=== PATIENT | female | born 1980 | race Caucasian/White ===

== ENCOUNTER 2019-04-19 18:03 | Observation (INO) | payer MEDICAID ==
[2019-04-19] MEDS ORDERED: Ondansetron 4 MG/2 ML SDV IVPUSH ONE ×2 (18:51→19:38)
[2019-04-19] MEDS ORDERED: LORazepam 2 MG/ML SDV IVPUSH ONE ×3 (18:52→22:08)
[2019-04-19] MEDS ORDERED: Sodium Chloride 0.9% 1,000 ML IV SCH ×3 (19:00→21:30)
--- NOTE | 2019-04-19 19:04 | EDM.PDOC ---
ED HPI GENERAL MEDICAL PROBLEM - General Chief Complaint: Gastrointestinal Problem Stated Complaint: VOMITING FOR 12 HOURS Time Seen by Provider: 04/19/19 19:03 Source of Information: Reports: Patient History Limitations: Reports: No Limitations - History of Present Illness INITIAL COMMENTS - FREE TEXT/NARRATIVE: pt arrived with a history of vomiting all day. She has not had bp meds for several days. She is here for her mothers wedding. Pt is wretching and vomiting actively. 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 ) Headache Pain Score (Numeric/FACES): 3 - Related Data Allergies Allergy/AdvReac Type Severity Reaction Status Date / Time amoxicillin Allergy Swelling Verified 04/19/19 18:35 Home Meds: Home Meds Loratadine [Claritin] 10 mg PO DAILY 04/19/19 [History] Diltiazem [Dilacor XR] 240 mg PO DAILY #7 cap.er 04/20/19 [Rx] amLODIPine [Norvasc] 5 mg PO BID #14 tablet 04/20/19 [Rx] hydrALAZINE [Apresoline] 50 mg PO Q12HR #14 tablet 04/20/19 [Rx] Past Medical History HEENT History: Reports: Impaired Vision Cardiovascular History: Reports: Hypertension Genitourinary History: Reports: Other (See Below) Other Genitourinary History: IGA nephropathy since child 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: Neurological History: Reports: Migraines Psychiatric History: Reports: Anxiety, Panic Attack Dermatologic History: Reports: Eczema - Infectious Disease History Infectious Disease History: Reports: Chicken Pox - Past Surgical History HEENT Surgical History: Reports: Myringotomy w Tube(s) GI Surgical History: Reports: Cholecystectomy Female Surgical History: Reports: Section Social & Family History - Tobacco Use Smoking Status *Q: Current Every Day Smoker Years of Tobacco use: 25 Packs/Tins Daily: 1 Used Tobacco, but Quit: No Second Hand Smoke Exposure: Yes - Caffeine Use Caffeine Use: Reports: None - Alcohol Use Days Per Week of Alcohol Use: 0 - Recreational Drug Use Recreational Drug Use: Yes Drug Use in Last 12 Months: Yes Recreational Drug Type: Reports: Marijuana/Hashish Recreational Drug Use Frequency: Daily ED ROS GENERAL - Review of Systems Review Of Systems: See Below Constitutional: Reports: Malaise, Weakness, Decreased Appetite HEENT: Reports: No Symptoms Respiratory: Reports: No Symptoms Cardiovascular: Reports: No Symptoms Endocrine: Reports: No Symptoms GI/Abdominal: Reports: Decreased Appetite, Nausea, Vomiting : Reports: No Symptoms Musculoskeletal: Reports: No Symptoms Skin: Reports: No Symptoms Neurological: Reports: Dizziness, Tremors, Weakness Psychiatric: Reports: Anxiety ED EXAM, GI/ABD - Physical Exam Exam: See Below Text/Narrative:: pt arrived feeling quite agitated. She has been vomiting constantly for the past 12 hours. She is not having abdomanal pain but is very nauseated. She has a low grade temp. Exam Limited By: No Limitations General Appearance: Alert, Anxious, Moderate Distress Ears: Normal TMs Nose: Normal Inspection Throat/Mouth: Normal Inspection Head: Atraumatic Neck: Normal Inspection Respiratory/Chest: No Respiratory Distress Cardiovascular: Regular Rate, Rhythm, Tachycardia, Other (pt is very hypertensive. ) GI/Abdominal Exam: Non-Tender, No Distention (Female) Exam: Deferred Rectal (Female) Exam: Deferred Back Exam: Normal Inspection Extremities: Normal Inspection Neurological: Alert, Oriented, Normal Cognition Psychiatric: Anxious Course - Vital Signs Last Recorded V/S: Last Vital Signs Temp 37.1 C 04/20/19 07:00 Pulse 86 04/20/19 08:49 Resp 18 04/20/19 07:00 BP 149/93 H 04/20/19 08:49 Pulse Ox 98 04/20/19 07:39 - Orders/Labs/Meds Labs: Laboratory Tests 04/19/19 04/19/19 04/19/19 Range/Units 19:04 19:04 19:37 WBC 17.3 H (4.5-11.0) K/uL RBC 4.77 (3.30-5.50) M/uL Hgb 13.1 (12.0-15.0) g/dL Hct 39.0 (36.0-48.0) % MCV 82 (80-98) fL MCH 28 (27-31) pg MCHC 34 (32-36) % Plt Count 295 (150-400) K/uL Neut % (Auto) 91 H (36-66) % Lymph % (Auto) 6 L (24-44) % Lamar % (Auto) 3 (2-6) % Eos % (Auto) 0 L (2-4) % Baso % (Auto) 0 (0-1) % VBG pH 7.351 (7.350-7.450) Sodium 142 (140-148) mmol/L Potassium 4.1 (3.6-5.2) mmol/L Chloride 107 (100-108) mmol/L Carbon Dioxide 15 L (21-32) mmol/L Anion Gap 24.1 H (5.0-14.0) mmol/L BUN 45 H (7-18) mg/dL Creatinine 3.8 H* (0.6-1.0) mg/dL Est Cr Clr Drug Dosing 18.06 mL/min Estimated GFR (MDRD) 13 L (>60) Glucose 154 H (74-106) mg/dL Lactic Acid (0.4-2.0) mmol/L Calcium 9.6 (8.5-10.1) mg/dL Total Bilirubin 0.6 (0.2-1.0) mg/dL AST 11 L (15-37) U/L ALT 11 L (12-78) U/L Alkaline Phosphatase 88 (46-116) U/L Total Protein 7.7 (6.4-8.2) g/dL Albumin 4.1 (3.4-5.0) g/dL Globulin 3.6 H (2.3-3.5) g/dL Albumin/Globulin Ratio 1.1 L (1.2-2.2) 04/19/19 Range/Units 21:27 WBC (4.5-11.0) K/uL RBC (3.30-5.50) M/uL Hgb (12.0-15.0) g/dL Hct (36.0-48.0) % MCV (80-98) fL MCH (27-31) pg MCHC (32-36) % Plt Count (150-400) K/uL Neut % (Auto) (36-66) % Lymph % (Auto) (24-44) % Lamar % (Auto) (2-6) % Eos % (Auto) (2-4) % Baso % (Auto) (0-1) % VBG pH (7.350-7.450) Sodium (140-148) mmol/L Potassium (3.6-5.2) mmol/L Chloride (100-108) mmol/L Carbon Dioxide (21-32) mmol/L Anion Gap (5.0-14.0) mmol/L BUN (7-18) mg/dL Creatinine (0.6-1.0) mg/dL Est Cr Clr Drug Dosing mL/min Estimated GFR (MDRD) (>60) Glucose (74-106) mg/dL Lactic Acid 2.1 H (0.4-2.0) mmol/L Calcium (8.5-10.1) mg/dL Total Bilirubin (0.2-1.0) mg/dL AST (15-37) U/L ALT (12-78) U/L Alkaline Phosphatase (46-116) U/L Total Protein (6.4-8.2) g/dL Albumin (3.4-5.0) g/dL Globulin (2.3-3.5) g/dL Albumin/Globulin Ratio (1.2-2.2) Meds: Medications Discontinued Medications Generic Name Dose Route Start Last Admin Trade Name Freq PRN Reason Stop Dose Admin Acetaminophen 650 mg 04/19/19 23:54 Tylenol PO Q4H PRN Pain (Mild 1-3)/fever Albuterol 2.5 mg 04/19/19 23:54 Proventil Neb Soln NEB Q4H PRN Shortness Of Breath/wheezing Calcium Carbonate/Glycine 1,000 mg 04/19/19 21:23 04/19/19 21:36 Tums PO 04/19/19 21:24 1,000 mg ONETIME ONE Administration Diltiazem HCl 240 mg 04/19/19 19:40 04/19/19 20:14 Cardizem Cd PO 04/19/19 19:41 240 mg ONETIME ONE Administration Diltiazem HCl 240 mg 04/20/19 09:00 04/20/19 08:49 Cardizem Cd PO 240 mg DAILY IAN Administration Enoxaparin Sodium 30 mg 04/21/19 00:00 Lovenox SUBCUT Q24H IAN Enoxaparin Sodium 30 mg 04/20/19 09:00 Lovenox SUBCUT Q24H IAN Famotidine 20 mg 04/19/19 21:24 04/19/19 21:35 Pepcid PO 04/19/19 21:25 20 mg ONETIME ONE Administration Hydralazine HCl 20 mg 04/19/19 19:38 04/19/19 20:14 Apresoline PO 04/19/19 19:39 20 mg Q8H ONE Administration Hydralazine HCl 5 mg 04/19/19 22:34 04/19/19 23:26 Apresoline IVPUSH 04/19/19 22:35 5 mg ONETIME ONE Administration Hydralazine HCl 5 mg 04/19/19 23:54 Apresoline IVPUSH ONETIME PRN Hypertension Hydralazine HCl 50 mg 04/20/19 09:00 04/20/19 08:48 Apresoline PO 50 mg Q12H IAN Administration Sodium Chloride 1,000 mls @ 999 mls/hr 04/19/19 19:00 04/19/19 19:02 Normal Saline IV 999 mls/hr ASDIRECTED IAN Administration Sodium Chloride 1,000 mls @ 999 mls/hr 04/19/19 19:45 04/19/19 20:11 Normal Saline IV 999 mls/hr ASDIRECTED IAN Administration Sodium Chloride 1,000 mls @ 400 mls/hr 04/19/19 21:30 04/19/19 21:37 Normal Saline IV 400 mls/hr ASDIRECTED IAN Administration Sodium Chloride 1,000 mls @ 125 mls/hr 04/19/19 23:54 04/20/19 07:33 Normal Saline IV 125 mls/hr ASDIRECTED IAN Administration Lorazepam 0.5 mg 04/19/19 18:52 04/19/19 19:06 Ativan IVPUSH 04/19/19 18:53 0.5 mg ONETIME ONE Administration Lorazepam 0.5 mg 04/19/19 20:12 04/19/19 20:22 Ativan IVPUSH 04/19/19 20:13 0.5 mg ONETIME ONE Administration Lorazepam 1 mg 04/19/19 22:08 04/19/19 22:17 Ativan IVPUSH 04/19/19 22:09 1 mg ONETIME ONE Administration Lorazepam 1 mg 04/19/19 23:54 Ativan IV 04/20/19 00:05 Q6H PRN Nausea/Vomiting Lorazepam 1 mg 04/20/19 00:05 04/20/19 00:18 Ativan IV 1 mg Q2H PRN Administration Anxiety Morphine Sulfate 2 mg 04/19/19 23:54 Morphine IVPUSH Q2H PRN Pain (severe 7-10) Ondansetron HCl 4 mg 04/19/19 18:51 04/19/19 19:02 Zofran IVPUSH 04/19/19 18:52 4 mg ONETIME ONE Administration Ondansetron HCl 4 mg 04/19/19 19:38 04/19/19 20:11 Zofran IVPUSH 04/19/19 19:39 4 mg ONETIME ONE Administration Oxycodone HCl 5 mg 04/19/19 23:54 Oxycodone PO Q4H PRN Pain (moderate 4-6) - Re-Assessments/Exams Free Text/Narrative Re-Assessment/Exam: 04/19/19 21:38 pt has a ph of 7.35. She is looking quite dry. Her bp is elevated and her hydralazine and her diltazam was given to the pt. She has been given 2 liters of fluid and she is now on her 3rd liter and that is running at 400cc. she has heart burn she was given a tuim and pepcid. Pt will be admitted for further follow up. Her creatnine is normally between 3-4. 04/24/19 07:51 pt remaind hypertensive. She was given further ativan. She now states that she was drinking all nite. Departure - Departure Time of Disposition: 21:41 Disposition: Admitted As Inpatient 66 Condition: Fair Clinical Impression: Nephropathy, Dehydration Hypertension Qualifiers: Hypertension type: secondary to other renal disorders Qualified Code(s): I15.1 - Hypertension secondary to other renal disorders - Discharge Information
[2019-04-19] MEDS ORDERED: hydrALAZINE 10 MG Tab PO ONE (19:38)
[2019-04-19] MEDS ORDERED: Diltiazem 120 MG Cap.CD PO ONE (19:40)
[2019-04-19] MEDS ORDERED: Calcium Carbonate 500 MG Tab.Chew PO ONE (21:23)
[2019-04-19] MEDS ORDERED: Famotidine 20 MG Tab PO ONE (21:24)
[2019-04-19] MEDS ORDERED: hydrALAZINE 20 MG/ML SDV IVPUSH ONE (22:34)
--- NOTE | 2019-04-19 23:18 | PCM.HP ---
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 She is here for the wedding of her Mom. has not taken her blood pressure medication for 3 days. has been exposed to alcohol and THC - drank > 1 bottle of wine yesterday THC for 20 minutes. Woke up this morning sick , thought she was just hung over but has been vomiting for 12 hours, now with dry heaves and restless legs. She denies any cardiac pain, shortness of breath, headache, numbness or tingling. Onset of Symptoms: Reports: Today Duration of Symptoms: Reports: Day(s):, Getting Worse Location: Reports: Abdomen (nausea and vomiting >12 hours), Generalized Severity: Severe Improves with: Reports: Rest Worsens with: Reports: Eating Context: Reports: Other (nausea and vomiting) Associated Symptoms: Reports: Loss of Appetite, Malaise, Nausea/Vomiting, Weakness Headache Pain Score (Numeric/FACES): 3 - Related Data Allergies/Adverse Reactions: Allergies Allergy/AdvReac Type Severity Reaction Status Date / Time amoxicillin Allergy Swelling Verified 04/19/19 18:35 Home Medications: Home Meds Diltiazem [Diltiazem XR] 240 mg PO DAILY 04/19/19 [History] Loratadine [Claritin] 10 mg PO DAILY 04/19/19 [History] hydrALAZINE [Apresoline] 50 mg PO Q12HR 04/19/19 [History] Past Medical History HEENT History: Reports: Impaired Vision Cardiovascular History: Reports: Hypertension Genitourinary History: Reports: Other (See Below) Other Genitourinary History: IGA nephropathy since child 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: Neurological History: Reports: Migraines Psychiatric History: Reports: Anxiety, Panic Attack Dermatologic History: Reports: Eczema - Infectious Disease History Infectious Disease History: Reports: Chicken Pox - Past Surgical History HEENT Surgical History: Reports: Myringotomy w Tube(s) GI Surgical History: Reports: Cholecystectomy Female Surgical History: Reports: Section Social & Family History - Tobacco Use Smoking Status *Q: Current Every Day Smoker Years of Tobacco use: 25 Packs/Tins Daily: 1 Used Tobacco, but Quit: No Second Hand Smoke Exposure: Yes - Caffeine Use Caffeine Use: Reports: None - Alcohol Use Days Per Week of Alcohol Use: 0 - Recreational Drug Use Recreational Drug Use: Yes Drug Use in Last 12 Months: Yes Recreational Drug Type: Reports: Marijuana/Hashish Recreational Drug Use Frequency: Daily H&P Review of Systems - Review of Systems: Review Of Systems: See Below General: Reports: Malaise, Weakness, Decreased Appetite HEENT: Reports: No Symptoms Pulmonary: Reports: No Symptoms Cardiovascular: Reports: No Symptoms Gastrointestinal: Reports: Nausea, Vomiting Genitourinary: Reports: No Symptoms, Other (last void at 5 pm today) Musculoskeletal: Reports: Muscle Pain (muscles feel weak and restless) Skin: Reports: No Symptoms Psychiatric: Reports: No Symptoms Neurological: Reports: No Symptoms Hematologic/Lymphatic: Reports: Anemia (history of anemai) Immunologic: Reports: No Symptoms Exam - Exam Exam: See Below - Vital Signs Vital Signs: Last Vital Signs Temp 38.1 C 04/19/19 21:07 Pulse 84 04/19/19 21:07 Resp 14 04/19/19 21:07 BP 204/119 H 04/19/19 21:07 Pulse Ox 96 04/19/19 21:07 Weight: 77.4 kg - Exam Quality Assessment: DVT Prophylaxis General: Alert, Oriented, Cooperative, Moderate Distress (restless legs, dry heaves) HEENT: PERRLA, Conjunctiva Clear, EACs Clear, EOMI, Hearing Intact, Nares Patent , Normal Nasal Septum, Posterior Pharynx Clear, Pupils Equal, Pupils Reactive, TMs Clear, Glasses Neck: Supple, Trachea Midline Lungs: Clear to Auscultation, Normal Respiratory Effort Cardiovascular: Regular Rate, Regular Rhythm, Normal S1, Normal S2 GI/Abdominal Exam: Normal Bowel Sounds, Soft, Non-Tender, No Organomegaly, No Distention, No Mass (Female) Exam: Deferred Rectal (Female) Exam: Deferred Back Exam: Normal Inspection, Full Range of Motion Extremities: Normal Inspection, Normal Range of Motion, Non-Tender, No Pedal Edema, Normal Capillary Refill Skin: Warm, Dry, Intact Neurological: Reflexes Equal Bilateral, Strength Equal Bilateral Neuro Extensive - Mental Status: Alert, Oriented x3, Normal Mood/Affect, Normal Cognition, Memory Intact Psychiatric: Alert, Normal Affect, Normal Mood - Patient Data Lab Results Last 24 hrs: Laboratory Results - last 24 hr 04/19/19 04/19/19 04/19/19 Range/Units 19:04 19:04 19:37 WBC 17.3 H (4.5-11.0) K/uL RBC 4.77 (3.30-5.50) M/uL Hgb 13.1 (12.0-15.0) g/dL Hct 39.0 (36.0-48.0) % MCV 82 (80-98) fL MCH 28 (27-31) pg MCHC 34 (32-36) % Plt Count 295 (150-400) K/uL Neut % (Auto) 91 H (36-66) % Lymph % (Auto) 6 L (24-44) % Eaton % (Auto) 3 (2-6) % Eos % (Auto) 0 L (2-4) % Baso % (Auto) 0 (0-1) % VBG pH 7.351 (7.350-7.450) Sodium 142 (140-148) mmol/L Potassium 4.1 (3.6-5.2) mmol/L Chloride 107 (100-108) mmol/L Carbon Dioxide 15 L (21-32) mmol/L Anion Gap 24.1 H (5.0-14.0) mmol/L BUN 45 H (7-18) mg/dL Creatinine 3.8 H* (0.6-1.0) mg/dL Est Cr Clr Drug Dosing 18.06 mL/min Estimated GFR (MDRD) 13 L (>60) Glucose 154 H (74-106) mg/dL Lactic Acid (0.4-2.0) mmol/L Calcium 9.6 (8.5-10.1) mg/dL Total Bilirubin 0.6 (0.2-1.0) mg/dL AST 11 L (15-37) U/L ALT 11 L (12-78) U/L Alkaline Phosphatase 88 (46-116) U/L Total Protein 7.7 (6.4-8.2) g/dL Albumin 4.1 (3.4-5.0) g/dL Globulin 3.6 H (2.3-3.5) g/dL Albumin/Globulin Ratio 1.1 L (1.2-2.2) 04/19/19 Range/Units 21:27 WBC (4.5-11.0) K/uL RBC (3.30-5.50) M/uL Hgb (12.0-15.0) g/dL Hct (36.0-48.0) % MCV (80-98) fL MCH (27-31) pg MCHC (32-36) % Plt Count (150-400) K/uL Neut % (Auto) (36-66) % Lymph % (Auto) (24-44) % Eaton % (Auto) (2-6) % Eos % (Auto) (2-4) % Baso % (Auto) (0-1) % VBG pH (7.350-7.450) Sodium (140-148) mmol/L Potassium (3.6-5.2) mmol/L Chloride (100-108) mmol/L Carbon Dioxide (21-32) mmol/L Anion Gap (5.0-14.0) mmol/L BUN (7-18) mg/dL Creatinine (0.6-1.0) mg/dL Est Cr Clr Drug Dosing mL/min Estimated GFR (MDRD) (>60) Glucose (74-106) mg/dL Lactic Acid 2.1 H (0.4-2.0) mmol/L Calcium (8.5-10.1) mg/dL Total Bilirubin (0.2-1.0) mg/dL AST (15-37) U/L ALT (12-78) U/L Alkaline Phosphatase (46-116) U/L Total Protein (6.4-8.2) g/dL Albumin (3.4-5.0) g/dL Globulin (2.3-3.5) g/dL Albumin/Globulin Ratio (1.2-2.2) Result Diagrams: 04/19/19 19:04 04/19/19 19:04 - Problem List (1) Nausea with vomiting SNOMED Code(s): 69065705 ICD Code: R11.2 - NAUSEA WITH VOMITING, UNSPECIFIED Status: Acute Priority: High Current Visit: Yes Qualifiers: Vomiting Intractability: intractable (2) Hypertension SNOMED Code(s): 43473261 ICD Code: I10 - ESSENTIAL (PRIMARY) HYPERTENSION Status: Acute Priority: High Current Visit: Yes Qualifiers: Hypertension type: secondary to other renal disorders Qualified Code(s): I15.1 - Hypertension secondary to other renal disorders; N28.89 - Other specified disorders of kidney and ureter Problem List Initiated/Reviewed/Updated: Yes Orders Last 24hrs: Active Orders 24 hr Category Date Time Status Patient Status Manage Transfer [TRANSFER] Routine ADT 04/19/19 22:46 Ordered CULTURE BLOOD [BC] Urgent Lab 04/19/19 19:30 Received CULTURE BLOOD [BC] Urgent Lab 04/19/19 19:47 Received UA W/MICROSCOPIC [URIN] Urgent Lab 04/19/19 18:52 Ordered Sodium Chloride 0.9% [Normal Saline] 1,000 ml Med 04/19/19 19:00 Active IV ASDIRECTED Sodium Chloride 0.9% [Normal Saline] 1,000 ml Med 04/19/19 19:45 Active IV ASDIRECTED Sodium Chloride 0.9% [Normal Saline] 1,000 ml Med 04/19/19 21:30 Active IV ASDIRECTED Blood Culture x2 Reflex Set [OM.PC] Urgent Oth 04/19/19 21:27 Ordered Resuscitation Status Routine Resus Stat 04/19/19 22:51 Ordered Medication Orders Sodium Chloride (Normal Saline) 1,000 mls @ 999 mls/hr IV ASDIRECTED [facility] Last Admin: 04/19/19 19:02 Dose: 999 mls/hr Sodium Chloride (Normal Saline) 1,000 mls @ 999 mls/hr IV ASDIRECTED [facility] Last Admin: 04/19/19 20:11 Dose: 999 mls/hr Sodium Chloride (Normal Saline) 1,000 mls @ 400 mls/hr IV ASDIRECTED [facility] Last Admin: 04/19/19 21:37 Dose: 400 mls/hr Assessment/Plan Comment:: Assessment/Plan Comment:: Nausea and vomiting with accelerated High blood pressure ASSESSMENT AND PLAN- This is a 38 year old female with 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 She is prescribed Diltiazem 240 mg ER cap one po daily, Hydralazine 50 mg tab po bid. [place] Mom's [place] this week. She has not taken her medications for 3 days, has been drinking and smoking THC for two days. Yesterday the family had a "wine " libertarian to celebrated the upcoming wedding. Madelaine drank over one bottle of wine and smoking THC for twenty minutes. Woke up this morning sick, vomiting. tried to eat, thought she was just hung over but has been vomiting for 12 hours then came to ER for evaluation. Mom is her at bedside and give report. Madelaine denies chest pain, shortness of breath, headache, or dizziness. ER vital signs TPR 97-84-15 Blood pressure 215/132. Labs cr. 3.8, which is about her base line. She was given 3 liters of fluids, without voiding. IV Ativan 0.5mg x2, IV famotidine, tums, cardizem 240mg po. Blood pressure at 190/ 100. Consulted with Internal Medicine, will admit to [facility]-surg. continue IV fluids, given IV Hydrazaline 5mg in ER and then recheck blood pressure, repeat dose if blood pressure remain elevated systolic >180, diasystolic >90, recheck labs in am. continue home medication. 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 At the time of this admission I do not reasonably expected evaluation and management of this problem will require more than a 2 night hospital stay. DISPOSITION-anticipate discharge to home after the hospital stay. PRIMARY CARE PROVIDER- [facility] HOSPITALIST - Dr. Brayan Childress
[2019-04-19] MEDS ORDERED: Albuterol 0.083% 2.5 MG/3 ML Neb Soln NEB PRN (23:54)
[2019-04-19] MEDS ORDERED: LORazepam 2 MG/ML SDV IV PRN (23:54)
[2019-04-19] MEDS ORDERED: Acetaminophen 325 MG Tab PO PRN (23:54)
[2019-04-19] MEDS ORDERED: oxyCODONE 5 MG Tab PO PRN (23:54)
[2019-04-19] MEDS ORDERED: hydrALAZINE 20 MG/ML SDV IVPUSH PRN (23:54)
[2019-04-19] MEDS ORDERED: Morphine 2 MG/ML Syringe IVPUSH PRN (23:54)
[2019-04-20] MEDS ORDERED: LORazepam 2 MG/ML SDV IV PRN (00:05)
[2019-04-20] MEDS: Sodium Chloride 0.9% 1,000 ML IV SCH ×2 (07:33)
[2019-04-20] MEDS ORDERED: hydrALAZINE 25 MG Tab PO SCH (09:00)
[2019-04-20] MEDS ORDERED: Diltiazem 120 MG Cap.CD PO SCH (09:00)
[2019-04-20] MEDS ORDERED: Enoxaparin 30 MG/0.3 ML Syringe SUBCUT SCH (09:00)
--- NOTE | 2019-04-20 09:50 | PCM.DCSUM1 ---
Discharge Summary - Hospital Course Brief History: 38-year-old female with history of IgA nephropathy and secondary hypertension who presented with nausea, vomiting and dehydration. She was admitted for management of the above symptoms as well as accelerated hypertension after missing her medications for several days. Diagnosis: Stroke: No - Discharge Data Discharge Date: 04/20/19 Discharge Disposition: Home, Self-Care 01 Condition: Good - Patient Summary/Data Hospital Course: Madelaine presented to the emergency room with nausea, vomiting and dehydration. She had been off of her medications and had been imbibing in alcohol while on vacation. Workup in the emergency room revealed accelerated hypertension with systolic blood pressures greater than 200. Her creatinine was 3.8 with a baseline in the 2 range. She had an anion gap metabolic acidosis presumably from alcohol and dehydration. Lactic acid was mildly elevated because of dehydration. White count was elevated but there were no fevers to suggest infection. She received multiple liters of IV fluid in the emergency room and gentle fluids overnight following admission. She received doses of her blood pressure medications in the emergency room and overnight had a slow trend towards normalization of her blood pressures. By the morning after admission her dry heaves and vomiting have resolved. She has no abdominal pain. Creatinine level has improved down to 3.4 which is above her baseline but better than admission. The patient feels well and is requesting to go home at this time. She has been ambulating some and feels like her strength is acceptable. I did give her a one-week supply of her antihypertensive medications because she did not bring them along on her vacation. - Patient Instructions Diet: Regular Diet as Tolerated (soft, bland and boring for a few days) Activity: As Tolerated Showering/Bathing: May Shower Notify Provider of: Fever, Increased Pain, Nausea and/or Vomiting Other/Special Instructions: 1. You were in the hospital for management of nausea with vomiting, dehydration and accelerated hypertension. You received IV fluids overnight and your symptoms have improved. Your blood pressure is much better this morning. I would recommend a soft, bland and boring diet for the next several days as your stomach recovers from the episode of vomiting. Please be sure to drink plenty of water throughout the day to avoid dehydration. 2. Continue your usual home medications as previously prescribed. 3. Follow up with your primary care provider in one week. 4. Seek medical attention if you have fever greater than 101, persistent vomiting or severe abdominal pain. - Discharge Plan *PRESCRIPTION DRUG MONITORING PROGRAM REVIEWED*: Not Applicable *COPY OF PRESCRIPTION DRUG MONITORING REPORT IN PATIENT ELISA: Not Applicable Prescriptions/Med Rec: amLODIPine [Norvasc] 5 mg PO BID #14 tablet Diltiazem [Dilacor XR] 240 mg PO DAILY #7 cap.er hydrALAZINE [Apresoline] 50 mg PO Q12HR #14 tablet Home Medications: Home Meds Loratadine [Claritin] 10 mg PO DAILY 04/19/19 [History] Diltiazem [Dilacor XR] 240 mg PO DAILY #7 cap.er 04/20/19 [Rx] amLODIPine [Norvasc] 5 mg PO BID #14 tablet 04/20/19 [Rx] hydrALAZINE [Apresoline] 50 mg PO Q12HR #14 tablet 04/20/19 [Rx] Oxygen Therapy Mode: Room Air Patient Handouts: Nausea and Vomiting, Adult, [id number] Referrals: PCP,None [Primary Care Provider] - (f/u with your primary care in 1 week for a blood pressure check and lab work to check your kidney function ) - Discharge Summary/Plan Comment DC Time >30 min.: No - Patient Data Vitals - Most Recent: Last Vital Signs Temp 37.1 C 04/20/19 07:00 Pulse 86 04/20/19 08:49 Resp 18 04/20/19 07:00 BP 149/93 H 04/20/19 08:49 Pulse Ox 98 04/20/19 07:39 Weight - Most Recent: 80.739 kg I&O - Last 24 hours: Intake & Output 04/19/19 04/20/19 04/20/19 22:59 06:59 14:59 Output Total 400 500 Balance -400 -500 Lab Results - Last 24 hrs: Laboratory Results - last 24 hr 04/19/19 04/19/19 04/19/19 Range/Units 19:04 19:04 19:37 WBC 17.3 H (4.5-11.0) K/uL RBC 4.77 (3.30-5.50) M/uL Hgb 13.1 (12.0-15.0) g/dL Hct 39.0 (36.0-48.0) % MCV 82 (80-98) fL MCH 28 (27-31) pg MCHC 34 (32-36) % Plt Count 295 (150-400) K/uL Neut % (Auto) 91 H (36-66) % Lymph % (Auto) 6 L (24-44) % [place] % (Auto) 3 (2-6) % Eos % (Auto) 0 L (2-4) % Baso % (Auto) 0 (0-1) % VBG pH 7.351 (7.350-7.450) Sodium 142 (140-148) mmol/L Potassium 4.1 (3.6-5.2) mmol/L Chloride 107 (100-108) mmol/L Carbon Dioxide 15 L (21-32) mmol/L Anion Gap 24.1 H (5.0-14.0) mmol/L BUN 45 H (7-18) mg/dL Creatinine 3.8 H* (0.6-1.0) mg/dL Est Cr Clr Drug Dosing 18.06 mL/min Estimated GFR (MDRD) 13 L (>60) Glucose 154 H (74-106) mg/dL Lactic Acid (0.4-2.0) mmol/L Calcium 9.6 (8.5-10.1) mg/dL Total Bilirubin 0.6 (0.2-1.0) mg/dL AST 11 L (15-37) U/L ALT 11 L (12-78) U/L Alkaline Phosphatase 88 (46-116) U/L Total Protein 7.7 (6.4-8.2) g/dL Albumin 4.1 (3.4-5.0) g/dL Globulin 3.6 H (2.3-3.5) g/dL Albumin/Globulin Ratio 1.1 L (1.2-2.2) Urine Color Urine Appearance Urine pH (4.5-8.0) Ur Specific [place] (1.008-1.030) Urine Protein (NEGATIVE) mg/dL Urine Glucose (UA) (NEGATIVE) mg/dL Urine Ketones (NEGATIVE) mg/dL Urine Occult Blood (NEGATIVE) Urine Nitrite (NEGATIVE) Urine Bilirubin (NEGATIVE) Urine Urobilinogen (NORMAL) mg/dL Ur Leukocyte Esterase (NEGATIVE) Urine RBC (0-5) Urine WBC (0-5) Ur Epithelial Cells Amorphous Sediment Urine Bacteria Urine Mucus Urine Other Urine Opiates Screen (NEGATIVE) Ur Oxycodone Screen (NEGATIVE) Urine Methadone Screen (NEGATIVE) Ur Propoxyphene Screen (NEGATIVE) Ur Barbiturates Screen (NEGATIVE) Ur Tricyclics Screen (NEGATIVE) Ur Phencyclidine Scrn (NEGATIVE) Ur Amphetamine Screen (NEGATIVE) U Methamphetamines Scrn (NEGATIVE) Urine MDMA Screen (NEGATIVE) U Benzodiazepines Scrn (NEGATIVE) U Cocaine Metab Screen (NEGATIVE) U Marijuana (THC) Screen (NEGATIVE) 04/19/19 04/19/19 04/19/19 Range/Units 21:27 23:56 23:56 WBC (4.5-11.0) K/uL RBC (3.30-5.50) M/uL Hgb (12.0-15.0) g/dL Hct (36.0-48.0) % MCV (80-98) fL MCH (27-31) pg MCHC (32-36) % Plt Count (150-400) K/uL Neut % (Auto) (36-66) % Lymph % (Auto) (24-44) % [place] % (Auto) (2-6) % Eos % (Auto) (2-4) % Baso % (Auto) (0-1) % VBG pH (7.350-7.450) Sodium (140-148) mmol/L Potassium (3.6-5.2) mmol/L Chloride (100-108) mmol/L Carbon Dioxide (21-32) mmol/L Anion Gap (5.0-14.0) mmol/L BUN (7-18) mg/dL Creatinine (0.6-1.0) mg/dL Est Cr Clr Drug Dosing mL/min Estimated GFR (MDRD) (>60) Glucose (74-106) mg/dL Lactic Acid 2.1 H (0.4-2.0) mmol/L Calcium (8.5-10.1) mg/dL Total Bilirubin (0.2-1.0) mg/dL AST (15-37) U/L ALT (12-78) U/L Alkaline Phosphatase (46-116) U/L Total Protein (6.4-8.2) g/dL Albumin (3.4-5.0) g/dL Globulin (2.3-3.5) g/dL Albumin/Globulin Ratio (1.2-2.2) Urine Color Yellow Urine Appearance Slightly cloudy Urine pH 5.0 (4.5-8.0) Ur Specific [place] 1.015 (1.008-1.030) Urine Protein 500 H (NEGATIVE) mg/dL Urine Glucose (UA) Normal (NEGATIVE) mg/dL Urine Ketones 15 H (NEGATIVE) mg/dL Urine Occult Blood Large (NEGATIVE) Urine Nitrite Negative (NEGATIVE) Urine Bilirubin Negative (NEGATIVE) Urine Urobilinogen Normal (NORMAL) mg/dL Ur Leukocyte Esterase Negative (NEGATIVE) Urine RBC 5-10 H (0-5) Urine WBC 0-5 (0-5) Ur Epithelial Cells Few Amorphous Sediment Not seen Urine Bacteria Few Urine Mucus Not seen Urine Other Urine Opiates Screen Negative (NEGATIVE) Ur Oxycodone Screen Negative (NEGATIVE) Urine Methadone Screen Negative (NEGATIVE) Ur Propoxyphene Screen Negative (NEGATIVE) Ur Barbiturates Screen Negative (NEGATIVE) Ur Tricyclics Screen Negative (NEGATIVE) Ur Phencyclidine Scrn Negative (NEGATIVE) Ur Amphetamine Screen Negative (NEGATIVE) U Methamphetamines Scrn Negative (NEGATIVE) Urine MDMA Screen Negative (NEGATIVE) U Benzodiazepines Scrn Negative (NEGATIVE) U Cocaine Metab Screen Negative (NEGATIVE) U Marijuana (THC) Screen Presumptive positive H (NEGATIVE) 04/20/19 04/20/19 Range/Units 05:00 05:00 WBC 15.8 H (4.5-11.0) K/uL RBC 3.80 (3.30-5.50) M/uL Hgb 10.6 L D (12.0-15.0) g/dL Hct 32.3 L (36.0-48.0) % MCV 85 (80-98) fL MCH 28 (27-31) pg MCHC 33 (32-36) % Plt Count 203 (150-400) K/uL Neut % (Auto) 84 H (36-66) % Lymph % (Auto) 10 L (24-44) % [place] % (Auto) 6 (2-6) % Eos % (Auto) 0 L (2-4) % Baso % (Auto) 0 (0-1) % VBG pH (7.350-7.450) Sodium 144 (140-148) mmol/L Potassium 4.3 (3.6-5.2) mmol/L Chloride 113 H (100-108) mmol/L Carbon Dioxide 16 L (21-32) mmol/L Anion Gap 19.3 H (5.0-14.0) mmol/L BUN 40 H (7-18) mg/dL Creatinine 3.4 H (0.6-1.0) mg/dL Est Cr Clr Drug Dosing 20.19 mL/min Estimated GFR (MDRD) 15 L (>60) Glucose 115 H (74-106) mg/dL Lactic Acid (0.4-2.0) mmol/L Calcium 8.7 (8.5-10.1) mg/dL Total Bilirubin (0.2-1.0) mg/dL AST (15-37) U/L ALT (12-78) U/L Alkaline Phosphatase (46-116) U/L Total Protein (6.4-8.2) g/dL Albumin (3.4-5.0) g/dL Globulin (2.3-3.5) g/dL Albumin/Globulin Ratio (1.2-2.2) Urine Color Urine Appearance Urine pH (4.5-8.0) Ur Specific [place] (1.008-1.030) Urine Protein (NEGATIVE) mg/dL Urine Glucose (UA) (NEGATIVE) mg/dL Urine Ketones (NEGATIVE) mg/dL Urine Occult Blood (NEGATIVE) Urine Nitrite (NEGATIVE) Urine Bilirubin (NEGATIVE) Urine Urobilinogen (NORMAL) mg/dL Ur Leukocyte Esterase (NEGATIVE) Urine RBC (0-5) Urine WBC (0-5) Ur Epithelial Cells Amorphous Sediment Urine Bacteria Urine Mucus Urine Other Urine Opiates Screen (NEGATIVE) Ur Oxycodone Screen (NEGATIVE) Urine Methadone Screen (NEGATIVE) Ur Propoxyphene Screen (NEGATIVE) Ur Barbiturates Screen (NEGATIVE) Ur Tricyclics Screen (NEGATIVE) Ur Phencyclidine Scrn (NEGATIVE) Ur Amphetamine Screen (NEGATIVE) U Methamphetamines Scrn (NEGATIVE) Urine MDMA Screen (NEGATIVE) U Benzodiazepines Scrn (NEGATIVE) U Cocaine Metab Screen (NEGATIVE) U Marijuana (THC) Screen (NEGATIVE) Med Orders - Current: Current Medications Acetaminophen (Tylenol) 650 mg PO Q4H PRN PRN Reason: Pain (Mild 1-3)/fever Albuterol (Proventil Neb Soln) 2.5 mg NEB Q4H PRN PRN Reason: Shortness Of Breath/wheezing Diltiazem HCl (Cardizem Cd) 240 mg PO DAILY IAN Last Admin: 04/20/19 08:49 Dose: 240 mg Hydralazine HCl (Apresoline) 50 mg PO Q12H [facility] Last Admin: 04/20/19 08:48 Dose: 50 mg Sodium Chloride (Normal Saline) 1,000 mls @ 125 mls/hr IV ASDIRECTED [facility] Last Admin: 04/20/19 07:33 Dose: 125 mls/hr Lorazepam (Ativan) 1 mg IV Q2H PRN PRN Reason: Anxiety Last Admin: 04/20/19 00:18 Dose: 1 mg Morphine Sulfate (Morphine) 2 mg IVPUSH Q2H PRN PRN Reason: Pain (severe 7-10) Oxycodone HCl (Oxycodone) 5 mg PO Q4H PRN PRN Reason: Pain (moderate 4-6) Discontinued Medications Calcium Carbonate/Glycine (Tums) 1,000 mg PO ONETIME ONE Stop: 04/19/19 21:24 Last Admin: 04/19/19 21:36 Dose: 1,000 mg Diltiazem HCl (Cardizem Cd) 240 mg PO ONETIME ONE Stop: 04/19/19 19:41 Last Admin: 04/19/19 20:14 Dose: 240 mg Enoxaparin Sodium (Lovenox) 30 mg SUBCUT Q24H [facility] Enoxaparin Sodium (Lovenox) 30 mg SUBCUT Q24H [facility] Famotidine (Pepcid) 20 mg PO ONETIME ONE Stop: 04/19/19 21:25 Last Admin: 04/19/19 21:35 Dose: 20 mg Hydralazine HCl (Apresoline) 20 mg PO Q8H ONE Stop: 04/19/19 19:39 Last Admin: 04/19/19 20:14 Dose: 20 mg Hydralazine HCl (Apresoline) 5 mg IVPUSH ONETIME ONE Stop: 04/19/19 22:35 Last Admin: 04/19/19 23:26 Dose: 5 mg Hydralazine HCl (Apresoline) 5 mg IVPUSH ONETIME PRN PRN Reason: Hypertension Sodium Chloride (Normal Saline) 1,000 mls @ 999 mls/hr IV ASDIRECTED [facility] Last Admin: 04/19/19 19:02 Dose: 999 mls/hr Sodium Chloride (Normal Saline) 1,000 mls @ 999 mls/hr IV ASDIRECTED [facility] Last Admin: 04/19/19 20:11 Dose: 999 mls/hr Sodium Chloride (Normal Saline) 1,000 mls @ 400 mls/hr IV ASDIRECTED [facility] Last Admin: 04/19/19 21:37 Dose: 400 mls/hr Lorazepam (Ativan) 0.5 mg IVPUSH ONETIME ONE Stop: 04/19/19 18:53 Last Admin: 04/19/19 19:06 Dose: 0.5 mg Lorazepam (Ativan) 0.5 mg IVPUSH ONETIME ONE Stop: 04/19/19 20:13 Last Admin: 04/19/19 20:22 Dose: 0.5 mg Lorazepam (Ativan) 1 mg IVPUSH ONETIME ONE Stop: 04/19/19 22:09 Last Admin: 04/19/19 22:17 Dose: 1 mg Lorazepam (Ativan) 1 mg IV Q6H PRN PRN Reason: Nausea/Vomiting Stop: 04/20/19 00:05 Ondansetron HCl (Zofran) 4 mg IVPUSH ONETIME ONE Stop: 04/19/19 18:52 Last Admin: 04/19/19 19:02 Dose: 4 mg Ondansetron HCl (Zofran) 4 mg IVPUSH ONETIME ONE Stop: 04/19/19 19:39 Last Admin: 04/19/19 20:11 Dose: 4 mg - Exam Quality Assessment: Denies: Supplemental Oxygen General: Reports: Alert, Oriented, Cooperative, No Acute Distress Lungs: Reports: Normal Respiratory Effort Cardiovascular: Reports: Regular Rate, Regular Rhythm GI/Abdominal Exam: Soft, No Distention Extremities: No Pedal Edema Psy/Mental Status: Reports: Alert, Normal Affect
[2019-04-21] MEDS ORDERED: Enoxaparin 30 MG/0.3 ML Syringe SUBCUT SCH
== END 2019-04-20 10:50 | disposition home or self-care (01) ==
LOC: JP.ED 18:03 → JP.MS 22:46
PROVIDERS: ADMIT Internal Medicine; ATTEND Internal Medicine
DX: R11.2 Nausea with vomiting, unspecified (principal); I15.1 Hypertension secondary to other renal disorders; N02.8 Recurrent and persistent hematuria with other morphologic changes; E86.0 Dehydration; G25.81 Restless legs syndrome; F17.210 Nicotine dependence, cigarettes, uncomplicated; Z88.0 Allergy status to penicillin; F41.9 Anxiety disorder, unspecified; Z79.899 Other long term (current) drug therapy
CPT/HCPCS: 36415; 80048; 80053; 80305; 81001; 82800; 83605; 85025; 87040; 96361; 96374; 96375; 96376; 99284; A9270; J0360; J2060; J2405; J7030